=== PATIENT | female | born 1955 | race Caucasian/White ===

== ENCOUNTER → 2017-05-30 | Outpatient (CLI) | payer BC ==
--- NOTE | 2017-05-30 12:29 | RAD ---
DATE: 05/30/2017 EXAM: MAMMO PEDRO SCREENING BILATERAL Bilateral digital screening mammography to include digital breast tomosynthesis (3D mammography) HISTORY: Screening study. COMPARISON: 07/10/2015 This study was interpreted with the benefit of Computerized Aided Detection (CAD). The breast parenchyma is heterogeneously dense, which could reduce sensitivity of mammography. Breast parenchyma level C. FINDINGS: Digital MLO and CC mammograms of both breasts were obtained. Additionally digital breast tomosynthesis (3D mammography) images of both breasts in the MLO and CC projections were performed. Comparison study is dated 07/10/2015. The breast parenchyma is heterogeneously dense which can obscure a lesion on mammography (breast density code C). No spiculated mass is seen. No malignant appearing calcification or area of architectural distortion is noted. Benign-appearing vascular calcifications are seen within both breasts. Digital breast tomosynthesis images demonstrate no spiculated mass or malignant appearing calcification. Since the previous examination there has been no significant interval change. IMPRESSION: BI-RADS Category 1, negative. There is no mammographic evidence of malignancy. Routine yearly screening mammography is recommended for follow-up. BI-RADS CATEGORY: 1 NEGATIVE RECOMMENDED FOLLOW-UP: 12M 12 MONTH FOLLOW-UP PQRS compliance statement: Patient information was entered into a reminder system with a target due date 05/30/2018 for the next mammogram. Mammography is a sensitive method for finding small breast cancers, but it does not detect them all and is not a substitute for careful clinical examination. A negative mammogram does not negate a clinically suspicious finding and should not result in delay in biopsying a clinically suspicious abnormality. "Our facility is accredited by the [employer] Mammography [employer]."
== END | disposition home or self-care (01) ==
LOC: MAMMO 09:40
PROVIDERS: ATTEND Specialist
DX: Z12.31 Encounter for screening mammogram for malignant neoplasm of breast (principal)
CPT/HCPCS: 77063; 77067

== ENCOUNTER → 2017-06-17 | Outpatient (CLI) | payer BC ==
[2017-06-17 12:01] LABS: BASO % 1 % (0-3); EOS # 0.1 x10^3/uL (0.0-0.7); EOS % 2 % (0-3); HEMATOCRIT 41.9 % (36.0-47.0); HEMOGLOBIN 14.6 g/dL (12.0-15.5); LYMPH % 30 % (24-48); MEAN CORPUSCULAR HEMOGLOBIN 32 pg (25-35); MEAN CORPUSCULAR HGB CONC 35 g/dL (31-37); MEAN CORPUSCULAR VOLUME 91 fL (79-100); MONO # 0.4 x10^3/uL (0.0-1.1); MONO % 6 % (0-9); NEUT # 4.1 x10^3uL (1.8-7.7); NEUT % 62 % (31-73); PLATELET COUNT 242 x10^3/uL (140-400); RED BLOOD COUNT 4.62 x10^6/uL (3.50-5.40); RED CELL DISTRIBUTION WIDTH 12.8 % (11.5-14.5); WHITE BLOOD COUNT 6.6 x10^3/uL (4.0-11.0)
--- NOTE | 2017-06-17 12:13 | RAD ---
Clinical indications: Mental status change. Decrease in cognitive function and awareness. Technique: Noncontrast axial cross sectional scanning of the head was performed. PQRS Compliance Statement: One or more of the following individualized dose reduction techniques were utilized for this examination: 1. Automated exposure control 2. Adjustment of the mA and/or kV according to patient size 3. Use of iterative reconstruction technique Findings: No acute intracranial hemorrhage or midline shift or mass-effect or hydrocephalus or extra-axial fluid collection is seen. No focal hypodense area or sulci effacement is seen to indicate an acute infarct or edema radiographically. No skull fracture or pneumocephalus is seen. No opacification of the mastoid sinuses or the paranasal sinuses is seen. The maxillary sinuses are not completely seen in this study. Impression: No acute intracranial abnormality is seen.
[2017-06-17 12:16] LABS: ALBUMIN/GLOBULIN RATIO 1.1 (1.0-1.7); CALCIUM 9.4 mg/dL (8.5-10.1); CREATININE 0.7 mg/dL (0.6-1.0); GFR 85.4; POTASSIUM 3.9 mmol/L (3.5-5.1); TOTAL BILIRUBIN 0.6 mg/dL (0.2-1.0); TOTAL PROTEIN 7.7 g/dL (6.4-8.2)
== END | disposition home or self-care (01) ==
LOC: CT 11:15
PROVIDERS: ATTEND Nurse Practitioner Family
DX: R41.89 Other symptoms and signs involving cognitive functions and awareness (principal); R41.82 Altered mental status, unspecified
CPT/HCPCS: 36415; 70450; 80053; 85025

== ENCOUNTER → 2017-06-27 | Outpatient (CLI) | payer BC ==
[~2017-06-27] MED LIST: BUPIVACAINE MPF 0.25% 10 ML VIAL. ONE; DEXAMETHASONE SOD PHOS 4 MG/ML VIAL ONE; IOHEXOL 300 MG/ML 50 ML VIAL. ONE; LIDOCAINE 1% PF 30 ML VIAL. ONE
== END | disposition home or self-care (01) ==
LOC: SURG 11:30
PROVIDERS: ATTEND Anesthesiology Pain Medicine
DX: M54.16 Radiculopathy, lumbar region (principal); I10 Essential (primary) hypertension; Z98.890 Other specified postprocedural states; Z72.89 Other problems related to lifestyle
CPT/HCPCS: 64483; 64484; J1100; J2001; J3490; Q9967

== ENCOUNTER → 2017-07-30 | Outpatient (CLI) | payer BC ==
[~2017-07-30] MED LIST changes: -DEXAMETHASONE SOD PHOS 4 MG/ML VIAL ONE; +methylPREDNISolone ACETATE 40 MG/ML VIAL. ONE
== END ==
LOC: SURG 13:29
PROVIDERS: ATTEND Anesthesiology Pain Medicine
DX: M54.16 Radiculopathy, lumbar region (principal); I10 Essential (primary) hypertension; K21.9 Gastro-esophageal reflux disease without esophagitis
CPT/HCPCS: 64483; 64484; J1030; J2001; J3490; Q9967

== ENCOUNTER → 2019-02-09 | Outpatient (CLI) | payer BC ==
--- NOTE | 2019-02-10 17:57 | RAD ---
DATE: 02/09/2019 EXAM: MAMMO PEDRO SCREENING BILATERAL HISTORY: Routine screening COMPARISON: 07/10/2015 and 05/30/2017 mammographic exams This study was interpreted with the benefit of Computerized Aided Detection (CAD). Breast Density: SCATTERED The breast parenchyma shows scattered fibroglandular densities. Breast parenchyma level B. FINDINGS: No suspicious calcification, mass, or distortion. IMPRESSION: Stable BI-RADS CATEGORY: 1 NEGATIVE RECOMMENDED FOLLOW-UP: 12M 12 MONTH FOLLOW-UP PQRS compliance statement: Patient information was entered into a reminder system with a target due date for the next mammogram. Mammography is a sensitive method for finding small breast cancers, but it does not detect them all and is not a substitute for careful clinical examination. A negative mammogram does not negate a clinically suspicious finding and should not result in delay in biopsying a clinically suspicious abnormality. "Our facility is accredited by the [employer] Mammography Program."
== END | disposition home or self-care (01) ==
LOC: MAMMO 14:58
PROVIDERS: ATTEND Specialist
DX: Z12.31 Encounter for screening mammogram for malignant neoplasm of breast (principal)
CPT/HCPCS: 77063; 77067

== ENCOUNTER → 2019-05-27 | Outpatient (CLI) | payer BC ==
[~2019-05-27] MED LIST changes: +AMLO2.5T5 PO; +AZIT250T PO; +BENZ-8 PO; +BENZ100C PO; -BUPIVACAINE MPF 0.25% 10 ML VIAL. ONE; +CEFD300C PO; -IOHEXOL 300 MG/ML 50 ML VIAL. ONE; -LIDOCAINE 1% PF 30 ML VIAL. ONE; +OMEP40CA45 PO; +POTA20TA4 PO; -methylPREDNISolone ACETATE 40 MG/ML VIAL. ONE
--- NOTE | 2019-05-27 16:54 | RAD ---
EXAM: Chest, 2 views. HISTORY: Acute respiratory infection. COMPARISON: None. FINDINGS: 2 views of the chest are obtained. There is no infiltrate, pleural effusion or pneumothorax. The heart is normal in size. IMPRESSION: No acute pulmonary finding. Electronically signed by: Camila Farr MD (05/27/2019 4:51 PM) [place] [id number]
== END | disposition home or self-care (01) ==
LOC: DXRAD 15:19
PROVIDERS: ATTEND Physician Assistant
DX: J06.9 Acute upper respiratory infection, unspecified (principal)
CPT/HCPCS: 71046

== ENCOUNTER 2019-06-17 17:48 | Inpatient (IN) | payer BC ==
[~2019-06-17] VITALS: Ht 167.6 cm; Wt 77.8 kg
[2019-06-17] MEDS ORDERED: IV NORMAL SALINE 1,000ML 1,000 ML IV SCH (18:08)
--- NOTE | 2019-06-17 18:14 | PHYS DOC ---
Past History Past Medical History: Hypertension Smoking: Non-smoker Adult General Chief Complaint Chief Complaint: FLU SYMPTOM HPI HPI Patient is a 64-year-old female who presents to the emergency department for evaluation. She states for the past 3 days, she has had flulike symptoms, with a cough, congestion, myalgias, and fevers. She has had some nausea, decreased appetite, dizziness, but no vomiting. She has had some mild diarrhea. She denies any focal pain other than diffuse myalgias. She has not had any significant shortness of breath. She denies any otalgia, or sore throat. She has taken Tylenol for her symptoms, last dose about 3 hours prior to arrival. There are no alleviating or exacerbating factors to her symptoms. Review of Systems Review of Systems Constitutional: Denies fever or chills [] Eyes: Denies change in visual acuity, redness, or eye pain [] HENT: Denies otalgia or sore throat [] Respiratory: Denies shortness of breath [] Cardiovascular:The patient denies any shortness of breath, chest pain, palpitations, or orthopnea [] GI: Denies abdominal pain, vomiting, bloody stools [] : Denies dysuria or hematuria [] Musculoskeletal: Denies back pain or joint pain [] Integument: Denies rash or skin lesions [] Neurologic: Denies headache, focal weakness or sensory changes [] Endocrine: Denies polyuria or polydipsia [] All other systems were reviewed and found to be within normal limits, except as documented in this note. Current Medications Current Medications Current Medications Medications (Trade) Dose Ordered Sig/Bertin Start Time Stop Time Status Last Admin Dose Admin Sodium Chloride 1,000 ml @ 1,000 mls/hr Q1H 06/17/19 18:08 06/17/19 19:07 UNV Allergies Allergies Allergies Coded Allergies Type Severity Reaction Last Updated Verified hydrocodone Allergy Unknown 06/17/19 Yes tramadol Allergy Unknown 06/17/19 Yes Physical Exam Physical Exam PHYSICAL EXAM: CONSTITUTIONAL: Well developed, well nourished HEAD: normocephalic, atraumatic EENT: PERRL, EOMI. Conjunctivae normal color, sclerae non-icteric; moist mucous membranes. NECK: Supple, non-tender; no meningismus. LUNGS: Mild right middle lung rhonchi, otherwise Lungs CTA, breathing even and unlabored. Normal air movement. HEART: Regular tachycardia, no murmur CHEST: No deformity; non-tender ABDOMEN: The abdomen is soft, and non-tender, no masses or bruits. EXTREM: Normal ROM; no deformity, no calf tenderness. Normal pulses palpable in all extremities. There is no pedal edema. SKIN: No rash; no diaphoresis NEURO: Alert; normal speech and cognition; CN's grossly intact; strength grossly intact without focal deficit. BACK: No CVA TTP. Current Patient Data Lab Results Laboratory Tests Test 06/17/19 18:03 06/17/19 18:26 Influenza Type A (Rapid) Negative Influenza Type B (Rapid) Negative White Blood Count 10.1 x10^3/uL Red Blood Count 4.66 x10^6/uL Hemoglobin 14.7 g/dL Hematocrit 43.9 % Mean Corpuscular Volume 94 fL Mean Corpuscular Hemoglobin 32 pg Mean Corpuscular Hemoglobin Concent 34 g/dL Red Cell Distribution Width 12.6 % Platelet Count 237 x10^3/uL Neutrophils (%) (Auto) 85 % Lymphocytes (%) (Auto) 11 % Monocytes (%) (Auto) 4 % Eosinophils (%) (Auto) 0 % Basophils (%) (Auto) 0 % Neutrophils # (Auto) 8.5 x10^3uL Lymphocytes # (Auto) 1.1 x10^3/uL Monocytes # (Auto) 0.4 x10^3/uL Eosinophils # (Auto) 0.0 x10^3/uL Basophils # (Auto) 0.0 x10^3/uL Current Medications Medications (Trade) Dose Ordered Sig/Bertin Route PRN Reason Start Time Stop Time Status Last Admin Dose Admin Sodium Chloride 1,000 ml @ 1,000 mls/hr Q1H IV 06/17/19 18:08 06/17/19 19:07 DC 06/17/19 18:30 Ceftriaxone Sodium 1 gm/ Sodium Chloride 50 ml @ 100 mls/hr 1X ONCE IV 06/17/19 18:45 06/17/19 19:14 DC 06/17/19 19:05 Azithromycin 500 mg/Sodium Chloride 250 ml @ 250 mls/hr 1X ONCE IV 06/17/19 18:45 06/17/19 19:44 DC 06/17/19 19:06 Sodium Chloride 250 ml @ As Directed STK-MED ONCE .ROUTE 06/17/19 18:49 06/17/19 18:49 DC Sodium Chloride 50 ml @ As Directed STK-MED ONCE .ROUTE 06/17/19 18:49 06/17/19 18:49 DC Azithromycin (Zithromax) 500 mg STK-MED ONCE IV 06/17/19 18:49 06/17/19 18:49 DC Ceftriaxone Sodium (Rocephin) 1 gm STK-MED ONCE .ROUTE 06/17/19 18:49 06/17/19 18:49 DC Benzonatate (Tessalon Perle) 200 mg 1X ONCE PO 06/17/19 19:30 06/17/19 19:31 DC 06/17/19 19:24 Sodium Chloride 1,000 ml @ 1,000 mls/hr 1X ONCE IV 06/17/19 19:30 06/17/19 20:29 06/17/19 19:25 EKG EKG [] Radiology/Procedures Radiology/Procedures PROCEDURE: CHEST PA & LATERAL Chest, PA and Lateral: Technique: PA and lateral views of the chest were obtained. History: Cough. Comparison: 05/27/2019. Findings: The cardiomediastinal silhouette grossly appears unremarkable. Mild right lung base airspace opacities likely atelectasis or infiltrates. IMPRESSION: 1. Mild airspace opacities identified in the right lung base likely pneumonia or atelectasis. Follow-up to resolution.[] Course & Med Decision Making Course & Med Decision Making Pertinent Labs and Imaging studies reviewed. (See chart for details) [] 8:05 PM:The patient's condition remains stable. I spoke with the hospitalist, who accepted the patient to the hospital for further evaluation and treatment. There is some delay in obtaining chemistry lactic acid results as the chemistry machine is inoperative at this time. Labs are having to be sent to different hospital. The patient still feels poorly and looks ill, and will benefit from hospitalization and supportive care. Dragon Disclaimer Dragon Disclaimer This electronic medical record was generated, in whole or in part, using a voice recognition dictation system. Departure Departure: Impression: Primary Impression: Pneumonia Disposition: ADMITTED INPATIENT Admitting Physician: Yumiko Barron Condition: STABLE Referrals: RUBY WEINBERG MD (PCP) MAGI SHAW MD Jun 17, 2019 18:14
--- NOTE | 2019-06-17 18:30 | RAD ---
Chest, PA and Lateral: Technique: PA and lateral views of the chest were obtained. History: Cough. Comparison: 05/27/2019. Findings: The cardiomediastinal silhouette grossly appears unremarkable. Mild right lung base airspace opacities likely atelectasis or infiltrates. IMPRESSION: 1. Mild airspace opacities identified in the right lung base likely pneumonia or atelectasis. Follow-up to resolution. Electronically signed by: Srini Bryant MD (06/17/2019 6:27 PM) [id number]
[2019-06-17 18:42] LABS: INFLUENZA A PATIENT NEGATIVE (NEGATIVE); INFLUENZA B PATIENT NEGATIVE (NEGATIVE)
[2019-06-17] MEDS ORDERED: AZITHROMYCIN 500 MG in IV NORMAL SALINE 250ML 250 ML IV ONE (18:45)
[2019-06-17] MEDS ORDERED: AZITHROMYCIN 500 MG VIAL. IV ONE (18:49)
[2019-06-17] MEDS ORDERED: IV NORMAL SALINE 250ML 250 ML ONE (18:49)
[2019-06-17] MEDS ORDERED: IV NORMAL SALINE 50ML 50 ML ONE (18:49)
[2019-06-17] MEDS ORDERED: cefTRIAXone SODIUM 1 GM VIAL ONE (18:49)
[2019-06-17 18:56] LABS: BASO % 0 % (0-3); EOS % 0 % (0-3); HEMATOCRIT 43.9 % (36.0-47.0); HEMOGLOBIN 14.7 g/dL (12.0-15.5); LYMPH # 1.1 x10^3/uL (1.0-4.8); LYMPH % 11 % (24-48); MEAN CORPUSCULAR HEMOGLOBIN 32 pg (25-35); MEAN CORPUSCULAR HGB CONC 34 g/dL (31-37); MEAN CORPUSCULAR VOLUME 94 fL (79-100); MONO # 0.4 x10^3/uL (0.0-1.1); MONO % 4 % (0-9); NEUT # 8.5 x10^3uL (1.8-7.7); NEUT % 85 % (31-73); PLATELET COUNT 237 x10^3/uL (140-400); RED BLOOD COUNT 4.66 x10^6/uL (3.50-5.40); RED CELL DISTRIBUTION WIDTH 12.6 % (11.5-14.5); WHITE BLOOD COUNT 10.1 x10^3/uL (4.0-11.0)
[2019-06-17] MEDS ORDERED: BENZONATATE 100 MG CAPSULE. PO ONE (19:30)
[2019-06-17] MEDS ORDERED: IV NORMAL SALINE 1,000ML 1,000 ML IV ONE ×2 (19:30→20:15)
[2019-06-17] MEDS ORDERED: PANTOPRAZOLE 40 MG TABLET. PO ONE (21:00)
[2019-06-17 21:05] LABS: ALBUMIN 4.4 g/dL (3.4-5.0); ALBUMIN/GLOBULIN RATIO 1.2 (1.0-1.7); CALCIUM 9.6 mg/dL (8.5-10.1); CREATININE 1.1 mg/dL (0.6-1.0); GFR 50.3; TOTAL BILIRUBIN 1.1 mg/dL (0.2-1.0)
[2019-06-17 21:06] LABS: POTASSIUM 3.8 mmol/L (3.5-5.1); TOTAL PROTEIN 8.2 g/dL (6.4-8.2)
[2019-06-17] MEDS ORDERED: IBUPROFEN 600 MG TABLET. PO ONE (22:00)
[2019-06-17 22:20] VITALS: BP 112/62
--- NOTE | 2019-06-17 22:20 | NUR ---
The patient, FELIX LYNN, 64 y/o, F admitted by ERICA GASTELUM MD, arrived on the floor via EMS on a gurney . Pt was given written information regarding hospital policies, unit procedures and contact persons. Valuables were checked and documented. Pts vitals were taken. pt has a complaint of being soa and unable to rest due to coughing. pt reveived tessalon perles and benadryl per dr orders. pt is currently sleeping. will continue to monitor.
[2019-06-17] MEDS ORDERED: OMEP40CA45 PO (22:30)
[2019-06-17] MEDS ORDERED: BENZ-8 PO (22:30)
[2019-06-17] MEDS ORDERED: AMLO2.5T5 PO (23:22)
[2019-06-17] MEDS: BENZONATATE 100 MG CAPSULE. PO PRN (23:51)
[2019-06-18] MEDS ORDERED: diphenhydrAMINE HCL 25 MG CAPSULE PO ONE
[2019-06-18 05:52] VITALS: BP 126/77
[2019-06-18] MEDS: BENZONATATE 100 MG CAPSULE. PO PRN ×3 (08:37→23:37)
[2019-06-18] MEDS ORDERED: ACETAMINOPHEN 325 MG TABLET PO ONE (09:30)
[2019-06-18] MEDS: ACETAMINOPHEN 325 MG TABLET PO PRN ×2 (09:46→16:53)
[2019-06-18 10:42] VITALS: BP 113/70
[2019-06-18] MEDS: ALBUTEROL SULFATE 2.5 MG/3 ML NEBU. NEB SCH ×3 (11:21→20:25)
--- NOTE | 2019-06-18 13:45 | HP ---
ADMIT DATE: 06/17/2019 HISTORY OF PRESENT ILLNESS: The patient is a 64-year-old female patient, who presented to Emergency Department for evaluation. She has had flu-like symptoms for the past 3 days with cough, congestion, myalgia, fever, also has some nausea, poor appetite, dizziness, but no vomiting. She has some mild diarrhea. Denied any focal pain than diffuse myalgias. She has not had any significant shortness of breath. Denied any otalgia, sore throat. She has taken Tylenol for symptoms. There are no alleviating or exacerbating factors. She was evaluated in the Emergency Room. Her influenza A and B were negative. Her white cell count was normal. Her chemistry was unremarkable; however, chest x-ray showed that she has right lower lobe infiltrate and therefore, the patient was admitted with diagnosis of community-acquired pneumonia, started on IV Zithromax and ceftriaxone. PAST MEDICAL HISTORY: Significant for hypertension, gastroesophageal reflux disease and esophageal stricture. PAST SURGICAL HISTORY: Significant for lumbar laminectomy and diskectomy, right carpal tunnel release, left knee meniscal tear surgery and esophageal stricture dilatation. ALLERGIES: She is allergic to HYDROCODONE AND TRAMADOL. MEDICATIONS: She is currently on following medications: She is on amlodipine 2.5 mg once a day, omeprazole 40 mg once a day and benzonatate 100 to 200 mg 3 times a day. FAMILY HISTORY: She has 6 brothers, 2 full brothers, older and both are , one with cancer, the other one with trauma, one half-brother and 3 step brothers. She has no sisters. Both parents are . SOCIAL HISTORY: She is , has 2 sons and 1 daughter. She never smoked, does not drink alcohol or use any recreational drugs. 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 REVIEW OF SYSTEMS: The patient denied any blurring of vision, cataract, glaucoma or macular degeneration. Denied any earache, tinnitus or sensorineural deafness. Denied any nosebleeds, stuffy nose or postnasal drip. Denied any sore throat, sore tongue, toothache, hoarseness of voice or difficulty swallowing. She has some nausea, but no vomiting. She has also mild diarrhea, but denied any hematemesis, melena or hematochezia. Denied any dysuria, frequency or hematuria. Denied any chest pain, shortness of breath, orthopnea, paroxysmal nocturnal dyspnea. She did have cough with scanty greenish sputum. Did have some fever. PHYSICAL EXAMINATION: GENERAL: On arrival to the Emergency Room, the patient looked slightly tachypneic, but no pallor, jaundice, cyanosis or thyromegaly. No jugular venous distention. No limb edema. VITAL SIGNS: Her heart rate was 113, blood pressure was 121/73, temperature was 98.8, respiratory rate was 22 and oxygen saturation was 97%. HEAD, EYES, EARS, NOSE AND THROAT: Showed normocephalic, atraumatic. NECK: Supple. HEART: Showed normal first and second heart sounds. No gallop, rub or murmur. CHEST: Shows central trachea, equal bilateral expansion, air entry, vesicular sounds with crepitation mostly in the right side posteriorly. No rhonchi. ABDOMEN: Scaphoid, soft, nontender. NEUROLOGIC: She is awake, alert, responding appropriately. All cranial nerves intact. EXTREMITIES: She moves extremities without difficulty. She ambulates without assistance or assistive devices. LABORATORY DATA: Her white cell count was 10,000, hemoglobin 14.7, hematocrit 44, MCV 94 and platelet count 237,000. Her chemistry showed a serum sodium 137, potassium 3.8, chloride 102, bicarbonate 24, anion gap of 11, BUN 19, creatinine 1.1, estimated GFR was 50 mL per minute. Her glucose was 100, lactic acid was 1.4, calcium was 9.6. Total bilirubin, AST slightly elevated. ALT and alkaline phosphatase is normal. Total protein was 8.2, albumin was 4.4. ASSESSMENT AND PLAN: The patient was admitted with community-acquired pneumonia. Her influenza A and B were negative. With blood cultures, we will also arrange for sputum culture and she was started on Rocephin and Zithromax. ERICA GASTELUM MD DR: RIRI/juan JOB#: [id number] / [id number]
[2019-06-18 15:43] VITALS: BP 93/58
--- NOTE | 2019-06-18 16:39 | NUR ---
New order to recheck CMP, Mag and administer PRN Oxycodone 5mf Q6H for pain also ordered. Patient is currently running fever of 101.7. PRN acetaminophen administered per order.
[2019-06-18] MEDS: oxyCODONE IR 5 MG TABLET PO PRN ×2 (16:53→23:37)
[2019-06-18 17:27] LABS: ALBUMIN 2.8 g/dL (3.4-5.0); ALBUMIN/GLOBULIN RATIO 0.8 (1.0-1.7); CREATININE 0.8 mg/dL (0.6-1.0); GFR 72.7; MAGNESIUM 1.7 mg/dL (1.8-2.4); POTASSIUM 3.3 mmol/L (3.5-5.1); TOTAL BILIRUBIN 0.7 mg/dL (0.2-1.0); TOTAL PROTEIN 6.4 g/dL (6.4-8.2)
[2019-06-18] MEDS ORDERED: POTASSIUM CHLORIDE 20 MEQ TABLET.ER. PO ONE (18:00)
[2019-06-18] MEDS ORDERED: AZITHROMYCIN 500 MG in IV NORMAL SALINE 250ML 250 ML IV SCH (20:00)
--- NOTE | 2019-06-18 20:07 | PN ---
DATE: 06/18/2019 SUBJECTIVE: The patient is resting flat, sleeping comfortably, in no apparent distress. On questioning her, she stated that she is feeling a little bit better. She continued to have generalized aches and pains, had cough with scanty yellow greenish sputum. Denied any chest pain or shortness of breath and did have a low-grade fever this morning up to 101.1. PHYSICAL EXAMINATION: GENERAL: When I examined her, she looked well and was clearly in no apparent respiratory distress. No pallor, jaundice, cyanosis, or thyromegaly. No jugular venous distension. No lower limb edema. VITAL SIGNS: Her heart rate was 109, blood pressure was 113/70, temperature was 100.9, respiratory rate was 18 and oxygen saturation was 94%. HEAD, EYES, EARS, NOSE AND THROAT: Showed normocephalic, atraumatic. NECK: Supple. CARDIAC: Normal first and second heart sounds. No gallop or murmur. CHEST: Shows central trachea, equal bilateral expansion, air entry, vesicular sounds with crepitation mostly on the right side posteriorly. I could not appreciate any rhonchi. ABDOMEN: Distended, soft, nontender. NEUROLOGIC: She is awake, alert, responding appropriately. She ambulates without assistance or assistive devices. LABORATORY DATA: She has no lab works done this morning. ASSESSMENT: 1. Community-acquired pneumonia for which continued her on Zithromax and Rocephin. 2. Hypertension. 3. Gastroesophageal reflux disease. ERICA GASTELUM MD DR: RIRI/juan JOB#: [id number] / [id number]
[2019-06-18] MEDS: LACTOBACILLUS RHAMNOSUS GG 1 CAPSULE. PO SCH (20:55)
[2019-06-18] MEDS: MAGNESIUM OXIDE 400 MG TABLET PO SCH (20:56)
[2019-06-18 23:45] VITALS: BP 120/72
[2019-06-19] MEDS: ALBUTEROL SULFATE 2.5 MG/3 ML NEBU. NEB SCH ×4 (04:50→20:00)
[2019-06-19 06:20] VITALS: BP 123/78
[2019-06-19] MEDS: ACETAMINOPHEN 325 MG TABLET PO PRN ×3 (07:21→23:20)
[2019-06-19 07:32] LABS: ALBUMIN 2.6 g/dL (3.4-5.0); ALBUMIN/GLOBULIN RATIO 0.7 (1.0-1.7); CALCIUM 7.9 mg/dL (8.5-10.1); CREATININE 0.7 mg/dL (0.6-1.0); GFR 84.8; POTASSIUM 3.5 mmol/L (3.5-5.1); TOTAL BILIRUBIN 0.6 mg/dL (0.2-1.0); TOTAL PROTEIN 6.1 g/dL (6.4-8.2)
[2019-06-19 07:33] LABS: HEMATOCRIT 33.9 % (36.0-47.0); HEMOGLOBIN 11.5 g/dL (12.0-15.5); RED BLOOD COUNT 3.64 x10^6/uL (3.50-5.40); RED CELL DISTRIBUTION WIDTH 12.6 % (11.5-14.5); WHITE BLOOD COUNT 6.8 x10^3/uL (4.0-11.0)
[2019-06-19] MEDS: LACTOBACILLUS RHAMNOSUS GG 1 CAPSULE. PO SCH ×2 (09:16→21:15)
[2019-06-19] MEDS: AZITHROMYCIN 250 MG TABLET. PO SCH (09:16)
[2019-06-19] MEDS: MAGNESIUM OXIDE 400 MG TABLET PO SCH ×2 (09:16→21:15)
[2019-06-19] MEDS: BENZONATATE 100 MG CAPSULE. PO PRN ×3 (09:18→21:15)
[2019-06-19 11:17] VITALS: BP 102/66
[2019-06-19 15:36] VITALS: BP 99/66
[2019-06-19 20:19] VITALS: BP 114/78
--- NOTE | 2019-06-20 00:51 | PN ---
DATE: SUBJECTIVE: The patient is resting, slightly propped up in bed, somewhat lethargic, arousable. She continued to have cough and chest pain. PHYSICAL EXAMINATION: GENERAL: When I examined her, she was somewhat pale, but no jaundice, cyanosis, or thyromegaly. No jugular venous distension. No lower limb edema. VITAL SIGNS: Her heart rate was 86, blood pressure was 123/78, temperature was 100.1, respiratory rate was 20, and oxygen saturation was 95% on room air. HEAD, EYES, EARS, NOSE AND THROAT: Showed normocephalic, atraumatic. NECK: Supple. HEART: Showed normal first and second heart sounds. No gallop or murmur. CHEST: Shows central trachea, equal bilateral expansion, air entry, vesicular sounds with crepitation mostly in the right side posteriorly. ABDOMEN: Scaphoid, soft. NEUROLOGIC: She is grossly intact. Her intake was 2675, no output was recorded. LABORATORY DATA: Her lab work this morning showed a white cell count is down to 6800, hemoglobin 11.5, hematocrit 33.9, MCV 93, and platelet count 206,000. Her chemistry showed a serum sodium 138, potassium 3.5, chloride 104, bicarbonate 25, anion gap of 9, BUN 7, creatinine 0.7. Estimated GFR was 85 mL per minute. Her glucose ____, calcium was 7.9. Total bilirubin, AST, ALT, alkaline phosphatase were normal. Total protein 6.1, albumin was 2.6. So far, her blood cultures showed no growth after 24 hours. Her influenza A and B were negative. ASSESSMENT: 1. Community-acquired pneumonia for which she continues to be on Zithromax and Rocephin. 2. Hypertension. 3. Gastroesophageal reflux disease. PLAN: To continue with IV Rocephin and Zithromax. Continue with pain management. Continue with nebulized albuterol and Atrovent secondary to spike in temperature. I will arrange for her to have CT scan of the chest without contrast. ERICA GASTELUM MD DR: RIRI/juan JOB#: [id number] / [id number]
[2019-06-20] MEDS: ALBUTEROL SULFATE 2.5 MG/3 ML NEBU. NEB SCH ×2 (05:25→10:35)
[2019-06-20 06:46] VITALS: BP 126/81
[2019-06-20] MEDS: ACETAMINOPHEN 325 MG TABLET PO PRN (07:55)
[2019-06-20] MEDS: BENZONATATE 100 MG CAPSULE. PO PRN (07:55)
[2019-06-20] MEDS: AZITHROMYCIN 250 MG TABLET. PO SCH (07:55)
[2019-06-20] MEDS: MAGNESIUM OXIDE 400 MG TABLET PO SCH (07:55)
[2019-06-20] MEDS: LACTOBACILLUS RHAMNOSUS GG 1 CAPSULE. PO SCH (07:55)
[2019-06-20 08:59] LABS: CALCIUM 8.5 mg/dL (8.5-10.1); CREATININE 0.5 mg/dL (0.6-1.0)
[2019-06-20 09:16] LABS: POTASSIUM 2.9 mmol/L (3.5-5.1)
[2019-06-20] MEDS ORDERED: POTASSIUM CHLORIDE 20 MEQ TABLET.ER. PO ONE (09:30)
[2019-06-20] MEDS ORDERED: AZIT250T PO (10:40)
[2019-06-20] MEDS ORDERED: CEFD300C PO (10:40)
[2019-06-20] MEDS ORDERED: POTA20TA4 PO (10:41)
[2019-06-20] MEDS ORDERED: BENZ100C PO (10:41)
--- NOTE | 2019-06-20 11:03 | NUR ---
PATIENT IS D/C HOME WITH SELF CARE. IV IS REMOVED AND PATIENTS HAS ALL BELONGINGS AT TIME OF D/C. DISCHARGE EDUCATION GIVEN TO PATIENT REGARDING PRESCRIPTIONS, REASON FOR ADMISSION, WELL FOLLOW UP. PATIENT AMBULATED OFF UNIT ACCOMPANIED BY .
== END 2019-06-20 11:03 | disposition home or self-care (01) | DRG 195 ==
LOC: ER 17:48 → 1 SOUTH 20:05
PROVIDERS: ADMIT Internal Medicine; ATTEND Internal Medicine
DX: J18.9 Pneumonia, unspecified organism (principal); I10 Essential (primary) hypertension; K21.9 Gastro-esophageal reflux disease without esophagitis; G56.01 Carpal tunnel syndrome, right upper limb; Z88.8 Allergy status to other drugs, medicaments and biological substances
CPT/HCPCS: 36415; 71046; 80048; 80053; 83605; 83735; 85025; 85027; 87040; 87070; 87205; 87804; 94640; 96361; 96365; 96375; J0456; J0696; J7050; J7613; Q0163; 99285-25; J7030

== ENCOUNTER → 2019-12-07 | Outpatient (CLI) | payer BC ==
[~2019-12-07] MED LIST changes: +IOHEXOL 350 MG/ML 100 ML VIAL. IV ONE
--- NOTE | 2019-12-07 17:44 | RAD ---
Examination: CT ANGIOGRAPHY CHEST History: Reason: CHEST PAIN / Comparison/Correlation: 06/17/2019 2V chest x-ray exam Findings: Axial images of the chest were obtained following IV contrast according to pulmonary arteriography protocol. Sagittal and coronal reformatted images were provided. Maximum intensity projection images were provided. Pulmonary arterial vasculature is normal with no thromboembolic disease. Thoracic aortic morphology is unremarkable. Thoracic aorta is not opacified for arteriographic assessment. No infiltrates. No pneumothorax. No enlarged thoracic lymph nodes. No suspicious pulmonary nodules or masses. Partially visualized upper abdomen is unremarkable. Bony structures are unremarkable. Impression: No PE. No infiltrate. Unremarkable exam. PQRS Compliance Statement: One or more of the following individualized dose reduction techniques were utilized for this examination: 1. Automated exposure control 2. Adjustment of the mA and/or kV according to patient size 3. Use of iterative reconstruction technique Electronically signed by: Jose Gilliam MD (12/07/2019 5:41 PM) [id number]
== END | disposition home or self-care (01) ==
LOC: CT 16:42
PROVIDERS: ATTEND Specialist
DX: R07.82 Intercostal pain (principal)
CPT/HCPCS: 71275; Q9967

== ENCOUNTER → 2020-01-19 | Outpatient (CLI) | payer BC ==
[~2020-01-19] MED LIST changes: -IOHEXOL 350 MG/ML 100 ML VIAL. IV ONE
--- NOTE | 2020-01-19 15:50 | RAD ---
PROCEDURE: TIBIA FIBULA LEFT CLINICAL INDICATION / HISTORY: Reason: LEFT KNEE AND LEG PAIN / Spl. Instructions: / History: . TECHNIQUE: AP and lateral views of the left tibia and fibula. COMPARISON: None FINDINGS: AP and lateral views of the left tibia and fibula show no acute fracture, dislocation or bone destruction. The soft tissues are normal. IMPRESSION: Normal left tibia and fibula. Electronically signed by: Delmy Feliciano MD (01/19/2020 3:47 PM) [id number]
== END | disposition home or self-care (01) ==
LOC: RAD 13:36
PROVIDERS: ATTEND Specialist
DX: M79.605 Pain in left leg (principal); M25.562 Pain in left knee
CPT/HCPCS: 73590

== ENCOUNTER → 2020-02-14 | Outpatient (CLI) | payer BC ==
--- NOTE | 2020-02-14 16:02 | RAD ---
EXAM: Left knee, 3 views. HISTORY: Pain. COMPARISON: None. FINDINGS: 3 views of the left knee are obtained. There is medial compartment joint space narrowing, subchondral sclerosis, spurring and vacuum phenomenon. There is no fracture, dislocation or subluxation. There is no joint effusion. IMPRESSION: Mild to moderate medial compartment osteoarthritis of the left knee. Electronically signed by: Camila Farr MD (02/14/2020 3:59 PM) [id number]
== END | disposition home or self-care (01) ==
LOC: DXRAD 12:39
DX: M17.12 Unilateral primary osteoarthritis, left knee (principal)
CPT/HCPCS: 73562

== ENCOUNTER → 2020-08-30 | Outpatient (CLI) | payer BC ==
--- NOTE | 2020-08-30 16:32 | RAD ---
Exam: CT neck chest without contrast INDICATION: Localized swelling, mass TECHNIQUE: Sequential axial images through the neck and chest obtained without IV contrast. Sagittal and coronal reformatted images were reconstructed from the axial data and reviewed. Comparisons: CT chest 12/07/2019 FINDINGS: NECK: Visualized intracranial structures are unremarkable. Globes and intraorbital contents are normal. Nasopharynx, oropharynx, hypopharynx and larynx are unremarkable. Thyroid and salivary glands are wit hin normal limits. No enlarged cervical lymph nodes are identified. Soft tissues of the neck are unremarkable. No subcutaneous emphysema is identified. No suspicious osseous lesions or acute fractures. CHEST: No enlarged mediastinal lymph nodes are identified. Heart size is normal. No pericardial effusion. Thoracic aorta has a normal course and caliber. Pulmon jessee artery is not enlarged. Airways are patent. No consolidation or pneumothorax. No suspicious lung nodules are identified. No pleural effusion or thickening. Visualized upper abdomen is unremarkable. No suspicious osseous lesions or acute fractures. IMPRESSION: 1. No subcutaneous emphysema or suspicious mass identified. 2. Unremarkable evaluation of the neck and chest. Exposure: One or more of the following in the visualized dose reduction techniques were utilized for this examination: 1. Automated exposure control 2. Adjustment of the MA and/or KV according to patient size 3. Use of iterative of reconstructive technique Electronically signed by: Olivia Drummond MD (08/30/2020 4:29 PM) [facility]
== END ==
LOC: CT 15:37
PROVIDERS: ATTEND Specialist
DX: R22.1 Localized swelling, mass and lump, neck (principal); R07.89 Other chest pain
CPT/HCPCS: 70490; 71250

== ENCOUNTER 2021-03-06 20:13 | Emergency (ER) | payer BC ==
[~2021-03-06] VITALS: Ht 167.6 cm; Wt 75.0 kg
[~2021-03-06 20:13] MED LIST changes: -OMEP40CA45 PO; +OMEP40CA7 PO; +POTA-121 PO; -POTA20TA4 PO
[2021-03-06 20:36] VITALS: BP 137/67
[2021-03-06] MEDS ORDERED: METOCLOPRAMIDE HCL 10 MG/2 ML VIAL. IVP ONE (20:45)
[2021-03-06] MEDS ORDERED: KETOROLAC 30 MG/ML VIAL. IVP ONE (20:45)
[2021-03-06] MEDS ORDERED: IV NORMAL SALINE 1,000ML 1,000 ML IV ONE (20:45)
[2021-03-06] MEDS ORDERED: diphenhydrAMINE 50 MG/ML VIAL IVP ONE (20:45)
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
[2021-03-06 21:45] LABS: BASO % 1 % (0-3); EOS # 0.1 x10^3/uL (0.0-0.7); EOS % 2 % (0-3); HEMATOCRIT 38.7 % (36.0-47.0); HEMOGLOBIN 13.1 g/dL (12.0-15.5); LYMPH % 33 % (24-48); MEAN CORPUSCULAR HEMOGLOBIN 32 pg (25-35); MEAN CORPUSCULAR HGB CONC 34 g/dL (31-37); MEAN CORPUSCULAR VOLUME 95 fL (79-100); MONO # 0.5 x10^3/uL (0.0-1.1); MONO % 8 % (0-9); NEUT # 3.5 x10^3uL (1.8-7.7); NEUT % 57 % (31-73); PLATELET COUNT 221 x10^3/uL (140-400); RED BLOOD COUNT 4.08 x10^6/uL (3.50-5.40); RED CELL DISTRIBUTION WIDTH 13.3 % (11.5-14.5); WHITE BLOOD COUNT 6.1 x10^3/uL (4.0-11.0)
[2021-03-06 21:50] LABS: CALCIUM 8.9 mg/dL (8.5-10.1); CREATININE 0.7 mg/dL (0.6-1.0); GFR 84.5; POTASSIUM 3.4 mmol/L (3.5-5.1)
[2021-03-06 21:56] LABS: ALBUMIN 3.7 g/dL (3.4-5.0); ALBUMIN/GLOBULIN RATIO 1.2 (1.0-1.7); TOTAL BILIRUBIN 0.4 mg/dL (0.2-1.0); TOTAL PROTEIN 6.9 g/dL (6.4-8.2)
== END 2021-03-06 22:19 | disposition home or self-care (01) ==
LOC: ER 20:13
DX: S09.90XA Unspecified injury of head, initial encounter (principal); I10 Essential (primary) hypertension; Z88.5 Allergy status to narcotic agent; Z88.6 Allergy status to analgesic agent; W22.8XXA Striking against or struck by other objects, initial encounter; Y93.89 Activity, other specified; Y92.89 Other specified places as the place of occurrence of the external cause; Y99.8 Other external cause status
CPT/HCPCS: 36415; 70450; 80053; 85025; 96361; 96374; 96375; 99284; J1200; J1885; J2765; J7030